=== PATIENT | male | born 1970 | race Caucasian/White ===

== ENCOUNTER 2022-07-12 07:43 | Day surgery (SDC) | payer BC ==
[2022-07-12] MEDS ORDERED: Propofol 200 MG/20 ML SDV IV ONE (07:44)
[2022-07-12] MEDS ORDERED: Sodium Chloride 0.9% 10 ML Syringe FLUSH PRN (07:45)
[2022-07-12] MEDS ORDERED: Lactated Ringers 1,000 ML IV SCH (07:45)
[2022-07-12] MEDS ORDERED: Simethicone Drops 40 MG/0.6 ML 30 ML Bottle PO ONE (08:36)
== END 2022-07-12 10:02 | disposition home or self-care (01) ==
LOC: FB.SDS 07:43
PROVIDERS: ATTEND Surgery
DX: Z12.11 Encounter for screening for malignant neoplasm of colon (principal); K63.5 Polyp of colon; K57.30 Diverticulosis of large intestine without perforation or abscess without bleeding; Z79.899 Other long term (current) drug therapy; Z87.891 Personal history of nicotine dependence
CPT/HCPCS: 00812; 88305; A9270-GY; J2704; J7120